=== PATIENT | female | born 1980 | race Caucasian/White ===

== ENCOUNTER → 2017-11-08 | Outpatient (CLI) | payer OTHER ==
[~2017-11-08] MED LIST: LEVO125T95 PO; LIDOCAINE 1%-EPI 1:100,000 20 ML VIAL IJ ONE; SODIUM BICARB 50MEQ 50ML VIAL ONE
[2017-11-08 08:48] LABS: INR 0.97 (0.85-1.15); PARTIAL THROMBOPLASTIN TIME 27.5 SEC (26.3-35.5); PROTHROMBIN TIME 10.2 SEC (9.6-11.6)
== END | disposition home or self-care (01) ==
LOC: RAH 08:06
PROVIDERS: ATTEND Physician Assistant Medical
DX: D24.1 Benign neoplasm of right breast (principal); N63.11 Unspecified lump in the right breast, upper outer quadrant; Z98.890 Other specified postprocedural states; Z88.8 Allergy status to other drugs, medicaments and biological substances; Z80.3 Family history of malignant neoplasm of breast
CPT/HCPCS: 19083; 36415; 85610; 85730; 88305; J3490 ×2

== ENCOUNTER 2018-03-02 07:43 | Day surgery (SDC) | payer OTHER ==
[~2018-03-02] VITALS: Ht 170.2 cm; Wt 65.0 kg
[~2018-03-02 07:43] MED LIST changes: -LIDOCAINE 1%-EPI 1:100,000 20 ML VIAL IJ ONE; -SODIUM BICARB 50MEQ 50ML VIAL ONE; +SODIUM CHLORIDE 0.9% 1000ML 1,000 ML IV ONE
[2018-03-02 08:25] VITALS: BP 104/63
[2018-03-02 10:35] VITALS: BP 115/55
== END 2018-03-02 11:05 | disposition home or self-care (01) ==
LOC: DAH 07:43 → ENDO 07:43
PROVIDERS: ATTEND Internal Medicine Gastroenterology
DX: K52.89 Other specified noninfective gastroenteritis and colitis (principal); Z79.899 Other long term (current) drug therapy; K21.9 Gastro-esophageal reflux disease without esophagitis; G43.909 Migraine, unspecified, not intractable, without status migrainosus; E89.0 Postprocedural hypothyroidism; Z98.890 Other specified postprocedural states; Z88.8 Allergy status to other drugs, medicaments and biological substances; Z80.0 Family history of malignant neoplasm of digestive organs
CPT/HCPCS: 45380; 81025; 88305; 88313; A4606; J7030

== ENCOUNTER 2021-04-09 08:31 | Day surgery (SDC) | payer OTHER ==
[2021-04-08 12:25] VITALS: BP 116/63
[2021-04-08 12:49] LABS: BASOPHILS % (AUTO) 0.6 % (0.0-5.0); EOSINOPHILS % (AUTO) 2.5 % (0.0-8.0); HEMATOCRIT 35.2 % (36-48); LYMPHOCYTES % (AUTO) 28.7 % (21.0-51.0); MEAN CORPUSCULAR HEMOGLOBIN 28.7 pg (27.0-33.0); MEAN CORPUSCULAR HGB CONC 32.4 g/dL (32.0-36.0); MEAN CORPUSCULAR VOLUME 88.7 fL (79-99); MONOCYTES % (AUTO) 6.4 % (3.0-13.0); NEUTROPHILS % (AUTO) 61.5 % (40.0-77.0); PLATELET COUNT (AUTO) 287 K/uL (130-400); RED BLOOD CELL COUNT(AUTO) 3.97 MIL/uL (4.00-5.50); RED CELL DISTRIBUTION WIDTH 14.5 % (11.0-15.5); WHITE BLOOD COUNT (AUTO) 6.4 K/uL (4.8-10.8)
[~2021-04-09] VITALS: Ht 165.1 cm; Wt 72.2 kg
[2021-04-09] VITALS (16 sets, daily range): BP systolic 104–117; BP diastolic 57–74
[~2021-04-09 08:31] MED LIST changes: -SODIUM CHLORIDE 0.9% 1000ML 1,000 ML IV ONE
[2021-04-09] MEDS: CALDOLOR 800MG+NS 250ML 250 ML IV SCH ×2 (08:45→14:28)
[2021-04-09] MEDS ORDERED: LEVOFLOXACIN 500 MG/D5W 100 ML 100 ML IV SCH (08:45)
[2021-04-09] MEDS ORDERED: CLINDAMYCIN 600MG IN 0.9% SOD 50 ML IV SCH (08:45)
[2021-04-09] MEDS ORDERED: CLINDAMYCIN 600 MG/D5% WATER 50 ML IV ONE (09:02)
[2021-04-09] MEDS ORDERED: LACTATED RINGERS 1000ML 1,000 ML IV ONE (09:02)
[2021-04-09] MEDS ORDERED: METR-172 PO (09:08)
[2021-04-09] MEDS ORDERED: LIDOCAINE HCL-MPF 1% 5ML AMP IJ ONE (13:51)
[2021-04-09] MEDS ORDERED: ROCURONIUM 10MG/1ML SYR 10 MG/ML ML ONE (13:51)
[2021-04-09] MEDS ORDERED: PROPOFOL 10 MG/ML 20ML VIAL IV ONE (13:51)
[2021-04-09] MEDS ORDERED: MIDAZOLAM HCL 1 MG/ML 2ML VIAL ONE (13:51)
[2021-04-09] MEDS ORDERED: SUCCINYLCHOLINE CHLORIDE 20 MG/ML 10 ML VIAL ONE (13:51)
[2021-04-09] MEDS ORDERED: FENTANYL CITRATE PF 50 MCG/1 ML 2ML VIAL ONE (13:53)
[2021-04-09] MEDS ORDERED: GLYCOPYRROLATE 1 MG/5 ML SYRINGE ONE (14:19)
[2021-04-09] MEDS ORDERED: NEOSTIGMINE 5MG/5ML SYR IV ONE (14:19)
== END 2021-04-09 16:00 | disposition home or self-care (01) ==
LOC: DAH 08:31
PROVIDERS: ATTEND Obstetrics & Gynecology
DX: N92.0 Excessive and frequent menstruation with regular cycle (principal); Z20.822 Contact with and (suspected) exposure to COVID-19; N84.0 Polyp of corpus uteri; N81.10 Cystocele, unspecified; E89.0 Postprocedural hypothyroidism; Z80.0 Family history of malignant neoplasm of digestive organs; Z83.79 Family history of other diseases of the digestive system; Z72.89 Other problems related to lifestyle; Z80.3 Family history of malignant neoplasm of breast
CPT/HCPCS: 36415; 58563; 84703; 85025; 86850; 86900; 86901; 87635; A4215; A4221; A4222; A4223; A4351; A4355; A4663; A4930; A6260; C9803; J0330; J2250; J2704; J2710; J3010; J3490 ×3; J7030; J7120; J1741; J1956